=== PATIENT | male | born 1970 | race Caucasian/White ===

== ENCOUNTER → 2017-11-06 | Outpatient (CLI) | payer BC ==
--- NOTE | 2017-11-06 12:06 | CT ---
EXAMINATION TYPE: CT chest wo/w con DATE OF EXAM: 11/06/2017 COMPARISON: NONE HISTORY: Lt upper chest pain, SOB CT DLP: 1359 mGycm Automated exposure control for dose reduction was used. CONTRAST: CT scan of the chest is performed without and with IV Contrast, patient injected with 100 mL of Isovu e 300. FINDINGS: LUNGS: The lungs are grossly clear, there is no concerning parenchymal mass or nodule identified. T here is no pleural effusion or pneumothorax seen. The tracheobronchial tree is patent. MEDIASTINUM: There are no greater than 1 cm hilar or mediastinal lymph nodes. No pericardial effusi on is seen. Thoracic aorta is of normal caliber. The heart is not enlarged. UPPER ABDOMEN: No significant abnormality appreciated. OTHER: No additional significant abnormality is seen. IMPRESSION: No significant abnormality to account for the patient's symptoms.
== END | disposition home or self-care (01) ==
LOC: RADCTMAIN 11:07
PROVIDERS: ATTEND Family Medicine
DX: R07.89 Other chest pain (principal)
CPT/HCPCS: 71270; Q9967

== ENCOUNTER → 2018-02-09 | Outpatient (CLI) | payer BC ==
--- NOTE | 2018-02-09 12:51 | ECHOF ---
Referral Reason:R07.9 chest pain MEASUREMENTS -------- HEIGHT: 180.3 cm WEIGHT: 127.0 kg BP: 137/71 RVIDd: 3.2 cm (< 3.3) IVSd: 1.2 cm (0.6 - 1.1) LVIDd: 4.0 cm (3.9 - 5.3) LVPWd: 1.2 cm (0.6 - 1.1) IVSs: 1.7 cm LVIDs: 2.7 cm LVPWs: 1.6 cm LA Diam: 3.4 cm (2.7 - 3.8) LAESV Index (A-L): 23.28 ml/m Ao Diam: 3.5 cm (2.0 - 3.7) AV Cusp: 2.2 cm (1.5 - 2.6) MV EXCURSION: 22.213 mm (> 18.000) MV EF SLOPE: 75 mm/s (70 - 150) EPSS: 0.2 cm MV E Gonzalo: 1.07 m/s MV DecT: 153 ms MV A Gonzalo: 0.77 m/s MV E/A Ratio: 1.39 FINDINGS -------- Sinus rhythm. This was a technically good study. The left ventricular size is normal. There is borderline concentric left ventricular hypertrophy. Overall left ventricular systolic function is normal with, an EF between 55 - 60 %. The right ventricle is normal in size. Normal LA size by volume 22+/-6 ml/m2. The right atrium is normal in size. The aortic valve is trileaflet, and appears structurally normal. No aortic stenosis or regurgitation. The mitral valve is normal. There is trace mitral regurgitation. The tricuspid valve appears structurally normal. The pulmonic valve was not well visualized. There is no pulmonic regurgitation present. The aortic root size is normal. IVC Not well visulized. There is no pericardial effusion. CONCLUSIONS -------- 1. Sinus rhythm. 2. This was a technically good study. 3. The left ventricular size is normal. 4. There is borderline concentric left ventricular hypertrophy. 5. Overall left ventricular systolic function is normal with, an EF between 55 - 60 %. 6. Normal LA size by volume 22+/-6 ml/m2. 7. The aortic valve is trileaflet, and appears structurally normal. No aortic stenosis or regurgitati on. 8. The mitral valve is normal. 9. There is trace mitral regurgitation. 10. The tricuspid valve appears structurally normal. 11. The pulmonic valve was not well visualized. 12. There is no pulmonic regurgitation present. 13. The aortic root size is normal. 14. IVC Not well visulized. 15. There is no pericardial effusion. [employer]: Mary Miller RDCS
--- NOTE | 2018-02-09 13:54 | ECHOS ---
STRESS ECHOCARDIOGRAM INDICATIONS: Chest pain. MEDICATIONS: None. BASELINE HEART RATE: 75 BASELINE BLOOD PRESSURE: 137/71 MAXIMUM HEART RATE: 158 MAXIMUM BLOOD PRESSURE: 195/77 85% MPHR: 145 100% MPHR: 171 METS: 11.1 MAXIMUM STAGE REACHED: 4 TOTAL EXERCISE TIME: 10:00 CLINICAL INFORMATION: Baseline rhythm is sinus mechanism, rate 75, borderline right axis deviation. Baseline blood pressure 137/71 mmHg. Patient exercised on Lester protocol for 10 minute reaching peak rate 158 beats per minute which is equal to 92% maximum predicted heart rate. Peak blood pressure 195/77 mmHg. Test was terminated due to fatigue. There was no chest pain. Electrocardiographic monitoring revealed no evidence of diagnostic ischemic ST deviation. FINDINGS: Baseline echocardiogram revealed normal wall thickening motion. At peak exercise, there was normal wall motion augmentation with no hypokinesis or dyskinesis. CONCLUSION: 1. Average exercise tolerance with normal echocardiographic response to exercise. 2. Normal stress echocardiogram with no evidence of stress-induced ischemia. MMODL / IJN: [id number] /
== END | disposition home or self-care (01) ==
LOC: RADNMMAIN 09:46
PROVIDERS: ATTEND Family Medicine
DX: R07.89 Other chest pain (principal); R00.2 Palpitations; I10 Essential (primary) hypertension
CPT/HCPCS: 93225; 93226; 93306; 93351

== ENCOUNTER 2018-03-27 22:46 | Emergency (ER) | payer BC ==
[2018-03-27 23:20] LABS: Basophils # (A) 0.1 k/uL (0-0.2); Basophils % (A) 1 %; Eosinophils # (A) 0.3 k/uL (0-0.7); Eosinophils % (A) 4 %; HCT 48.3 % (39.0-53.0); HGB 16.2 gm/dL (13.0-17.5); Lymphocytes # (A) 2.3 k/uL (1.0-4.8); Lymphocytes % (A) 25 %; MCH 28.7 pg (25.0-35.0); MCHC 33.5 g/dL (31.0-37.0); MCV 85.7 fL (80.0-100.0); Mean Platelet Volume 6.3; Monocytes # (A) 0.6 k/uL (0-1.0); Monocytes % (A) 7 %; Neutrophils # (A) 5.6 k/uL (1.3-7.7); Neutrophils % (A) 62 %; Platelet Count 286 k/uL (150-450); RBC 5.64 m/uL (4.30-5.90); RDW 12.7 % (11.5-15.5); WBC 9.1 k/uL (3.8-10.6)
[2018-03-27 23:28] LABS: ALT 56 U/L (21-72); AST 31 U/L (17-59); Albumin 4.2 g/dL (3.5-5.0); Alkaline Phosphatase 87 U/L (38-126); Anion Gap 8 mmol/L; Blood Urea Nitrogen 22 mg/dL (9-20); Calcium 9.5 mg/dL (8.4-10.2); Carbon Dioxide 27 mmol/L (22-30); Chloride 106 mmol/L (98-107); Glucose 101 mg/dL (74-99); Magnesium 2.2 mg/dL (1.6-2.3); Potassium 4.3 mmol/L (3.5-5.1); Sodium 141 mmol/L (137-145); Total Bilirubin 0.4 mg/dL (0.2-1.3); Total Protein 7.1 g/dL (6.3-8.2)
[2018-03-27 23:32] LABS: Partial Thromboplastin Time 25.1 sec (22.0-30.0); Prothrombin Time 9.8 sec (9.0-12.0)
--- NOTE | 2018-03-27 23:34 | XR ---
EXAMINATION TYPE: XR chest 2V DATE OF EXAM: 03/27/2018 COMPARISON: 03/08/2016 HISTORY: Chest pain TECHNIQUE: Frontal and lateral views of the chest are obtained. FINDINGS: Heart and mediastinum are normal. Lungs are clear. Diaphragm is normal. Bony thorax is int act. Pulmonary vascularity is normal. IMPRESSION: Normal chest. No change.
--- NOTE | 2018-03-27 23:40 | ED ---
Chest Pain HPI - General Chief Complaint: Chest Pain Stated Complaint: chest pain,hypertension Time Seen by Provider: 03/27/18 23:23 Source: patient, family, RN notes reviewed, old records reviewed Mode of arrival: ambulatory Limitations: no limitations - History of Present Illness Initial Comments: This is a 48-year-old male the ER for evaluation today. She presents for evaluation regards to not feeling well. Not feeling well. Patient is had similar issues before and is any issues with his blood pressure being elevated as well as significantly elevated today. Patient's symptoms occur or drink aggressively due to exertion. Patient states he is able to do any activity without having symptoms previously done arrested night, sleep, riding his car eating seems to have symptoms. He doesn't always take his blood pressure but notes his blood pressure is high a little discolored been this time. Patient denies any significant pain no chest pain no sweating or shortness of breath -: week(s) Onset: during rest Pain Location: substernal Pain Radiation: none Severity: mild Quality: other (Just does not feel right) Consistency: now resolved Improves With: nothing Worsens With: nothing Treatments Prior to Arrival: none - Related Data Home Medications Medication Instructions Recorded Confirmed Fluticasone Nasal [place] [Flonase 1 - 2 spray EA NOSTRIL DAILY PRN 03/27/1803/27 Nasal [place]] Loratadine 10 mg PO DAILY PRN 03/27/18 03/27/18 Allergies Allergy/AdvReac Type Severity Reaction Status Date / Time No Known Allergies Allergy Verified 03/27/18 23:08 Review of Systems ROS Statement: Those systems with pertinent positive or pertinent negative responses have been documented in the HPI. ROS Other: All systems not noted in ROS Statement are negative. EKG Findings - EKG Comments: EKG Findings:: EKG shows sinus rhythm rate of 68, MD 134, QRS 84, QTc 420 Past Medical History Past Medical History: No Reported History History of Any Multi-Drug Resistant Organisms: None Reported Past Surgical History: Orthopedic Surgery Past Psychological History: No Psychological Hx Reported Smoking Status: Never smoker Past Alcohol Use History: None Reported Past Drug Use History: None Reported General Exam Limitations: no limitations General appearance: alert, in no apparent distress, anxious Head exam: Present: atraumatic, normocephalic, normal inspection Eye exam: Present: normal appearance, PERRL, EOMI. Absent: scleral icterus, conjunctival injection, periorbital swelling ENT exam: Present: normal exam, mucous membranes moist Neck exam: Present: normal inspection. Absent: tenderness, meningismus, lymphadenopathy Respiratory exam: Present: normal lung sounds bilaterally. Absent: respiratory distress, wheezes, rales, rhonchi, stridor Cardiovascular Exam: Present: regular rate, normal rhythm, normal heart sounds. Absent: systolic murmur, diastolic murmur, rubs, gallop, clicks GI/Abdominal exam: Present: soft, normal bowel sounds. Absent: distended, tenderness, guarding, rebound, rigid Extremities exam: Present: normal inspection, full ROM, normal capillary refill. Absent: tenderness, pedal edema, joint swelling, calf tenderness Back exam: Present: normal inspection Neurological exam: Present: alert, oriented X3, CN II-XII intact Psychiatric exam: Present: normal affect, normal mood Skin exam: Present: warm, dry, intact, normal color. Absent: rash Course Vital Signs 03/27/18 03/27/18 03/27/18 22:48 23:12 23:33 Temperature 98.1 F Pulse Rate 79 73 72 Respiratory 16 20 18 Rate Blood Pressure 227/126 197/110 193/103 O2 Sat by Pulse 96 98 98 Oximetry - Reevaluation(s) Reevaluation #1: 03/27/18 23:49 Medical records thoroughly reviewed including multiple outpatient studies regarding similar and same symptoms Reevaluation #2: 03/27/18 23:49 Blood pressure much improved, patient advised regarding blood pressure control, we'll start on low-dose blood pressure medications Chest Pain MDM - MDM 48 male the ER with nonspecific symptoms of not feeling well. Patient has significant elevated blood pressure home continue to the emergency room, blood pressure is treated, patient is relatively making can be discharged Disposition Clinical Impression: Hypertension Disposition: HOME SELF-CARE Condition: Good Instructions: Hypertension (ED) Is patient prescribed a controlled substance at d/c from ED?: No Referrals: Lyle Rutledge MD [Primary Care Provider] - 1-2 days
[2018-03-27 23:41] LABS: Creatine Kinase 78 U/L (55-170)
[2018-03-27 23:53] LABS: Creatine Kinase MB 1.5 ng/mL (0.0-2.4); Troponin I <0.012 ng/mL (0.000-0.034)
[2018-03-28] MEDS ORDERED: LABETALOL 5 MG/ML VIAL MDV IVP STA (00:27)
[2018-03-28 01:25] VITALS: BP 160/100; PULSE 68; RESP 16; TEMP 98.5
== END 2018-03-28 01:25 | disposition home or self-care (01) ==
LOC: EC 22:46
DX: I10 Essential (primary) hypertension (principal)
CPT/HCPCS: 36415; 71046; 80053; 82550; 82553; 83735; 84484; 85025; 85610; 85730; 93005; 96374; 99285

== ENCOUNTER → 2018-04-09 | Outpatient (CLI) | payer BC ==
--- NOTE | 2018-04-09 10:44 | US ---
EXAMINATION TYPE: US renal artery duplex complet DATE OF EXAM: 04/09/2018 COMPARISON: NONE CLINICAL HISTORY: I10 essential hypertension. MEASUREMENTS: RENAL SIZE: Rt Kidney: 11.5 x 6.5 x 5.5cm Lt Kidney: 12.1 x 6.5 x 6.2cm RESISTANCE INDEX Right: 0.61 Left: 0.62 RA/AO RATIO (< 3.5 ) Right: 2.0 Left: 2.0 RA VELOCITY ( < 180 cm/s) Right: 123cm/s Left: 125cm/s Patient of large body habitus with extensive overlying bowel gas. Technically difficult study with so me limitations. Proximal aorta obscured by bowel gas, mid arcuate artery obscured by cyst. 2 left kidney cysts, 1.) 7.5 x 5.6 x 5.9cm 2.) 2.5 x 2.4 x 2.0cm No evidence of renal artery stenosis in this somewhat limited study. IMPRESSION: 1. No evidence for renal artery stenosis on this somewhat limited examination. 2. Renal cysts.
== END | disposition home or self-care (01) ==
LOC: RADUSMAIN 07:43
PROVIDERS: ATTEND Family Medicine
DX: N28.1 Cyst of kidney, acquired (principal); I10 Essential (primary) hypertension
CPT/HCPCS: 93975

== ENCOUNTER → 2019-02-04 | Outpatient (CLI) | payer BC ==
--- NOTE | 2019-02-04 16:18 | XR ---
EXAMINATION TYPE: XR chest 2V DATE OF EXAM: 02/04/2019 COMPARISON: Chest x-ray March 27, 2018. CT chest November 06, 2017. HISTORY: Left-sided chest pain for one year. TECHNIQUE: Frontal and lateral views of the chest are obtained. FINDINGS: There is no focal air space opacity, pleural effusion, or pneumothorax seen. The cardiac silhouette size is within normal limits. The osseous structures are intact. IMPRESSION: No acute process identified. No significant change from priors.
--- NOTE | 2019-02-04 16:36 | US ---
EXAMINATION TYPE: US kidneys/renal and bladder DATE OF EXAM: 02/04/2019 COMPARISON: NONE CLINICAL HISTORY: N28.1 CYST OF KIDNEY. Hx of renal cysts EXAM MEASUREMENTS: Right Kidney: 10.7 x 6.4 x 4.5 cm Left Kidney: 11.5 x 5.0 x 4.2 cm Right Kidney: No hydronephrosis or masses seen Left Kidney: Cystic area seen laterally 6.2 x 6.1 x 6.4 cm. Bladder: wnl Bilateral Jets seen: Yes IMPRESSION: There is a 6 cm simple cyst on the left kidney.
== END | disposition home or self-care (01) ==
LOC: RADUSWWP 15:33
PROVIDERS: ATTEND Family Medicine
DX: N28.1 Cyst of kidney, acquired (principal); R68.89 Other general symptoms and signs
CPT/HCPCS: 71046; 76770

== ENCOUNTER 2019-03-24 06:41 | Day surgery (SDC) | payer BC ==
[2019-03-19 14:54] VITALS: BMI 39.0
[~2019-03-24 06:41] MED LIST: LACTATED RINGERS 1,000 ML IV SCH; LIDOCAINE 1% 20 ML VIAL (10MG/ML) FOR IV START INTRADERMA PRN
[2019-03-24 07:12] VITALS: RESP 16; TEMP 97.8
--- NOTE | 2019-03-24 07:32 | P.GSHP ---
History of Present Illness H&P Date: 03/24/19 CHIEF COMPLAINT: Colon screen HISTORY OF PRESENT ILLNESS: The patient is a 49-year-old male who presents for colon screen. Lower endoscopy was offered for further evaluation and management. PAST MEDICAL HISTORY: Please see list. PAST SURGICAL HISTORY: Please see list. MEDICATIONS: Please see list. ALLERGIES: Please see list. SOCIAL HISTORY: No illicit drug use FAMILY HISTORY: No reports of Crohn disease or ulcerative colitis. REVIEW OF ORGAN SYSTEMS: CONSTITUTIONAL: No reports of fevers or chills. PHYSICAL EXAM: VITAL SIGNS: Stable GENERAL: Well-developed pleasant in no acute distress. HEENT: No scleral icterus. Extraocular movements grossly intact. Moist buccal mucosa. NECK: Supple without lymphadenopathy. CHEST: Unlabored respirations. Equal bilateral excursions. CARDIOVASCULAR: Regular rate and rhythm. Distal 2+ pulses. ABDOMEN: Soft, nontender, nondistended. MUSCULOSKELETAL: No clubbing, cyanosis, or edema. ASSESSMENT: 1. Colon screen. PLAN: 1. Recommend proceeding with a lower endoscopy Past Medical History Past Medical History: Hypertension Additional Past Medical History / Comment(s): Hx blood clot arm(unsure which arm)yrs ago History of Any Multi-Drug Resistant Organisms: None Reported Past Surgical History: Orthopedic Surgery Additional Past Surgical History / Comment(s): amirah placement femur and tibia left leg Past Anesthesia/Blood Transfusion Reactions: No Reported Reaction Smoking Status: Never smoker - Past Family History Mother Family Medical History: No Reported History Medications and Allergies Home Medications Medication Instructions Recorded Confirmed Type Fluticasone Nasal [place] [Flonase 1 - 2 spray EA NOSTRIL DAILY PRN 03/27/18 03/24/19 History Nasal [place]] Lisinopril 20 mg PO QAM 03/19/19 03/24/19 History Allergies Allergy/AdvReac Type Severity Reaction Status Date / Time No Known Allergies Allergy Verified 03/24/19 07:13 Surgical - Exam Vital Signs Temp Pulse Resp BP Pulse Ox 97.8 F 65 16 169/97 98 03/24/19 07:11 03/24/19 07:11 03/24/19 07:11 03/24/19 07:11 03/24/19 07:11
[2019-03-24] MEDS ORDERED: PROPOFOL 10 MG/ML 20 ML VIAL IV ONE (07:33)
--- NOTE | 2019-03-24 07:48 | P.PCN ---
Date of Procedure: 03/24/19 Description of Procedure: PREOPERATIVE DIAGNOSIS: Colonoscopy screening. POSTOPERATIVE DIAGNOSIS: Colonoscopy screening. Diverticulosis, scattered. OPERATION: Colonoscopy to the ileocecal valve and appendiceal orifice. SURGEON: Rianna Lujan MD. ANESTHESIA: MAC. INDICATIONS: The patient is a 49-year-old male who presents for colonoscopy screening. Benefits and risks were described and informed consent was obtained. DESCRIPTION OF PROCEDURE: The patient had undergone Suprep. He had been brought into the operating room and laid in the left lateral decubitus position. After adequate intravenous sedation, the rectum was examined with 2% lidocaine jelly. No external hemorrhoids were encountered. The prostatic fossa was unremarkable. The rectal tone was within normal limits. No lesions were palpated in the rectal vault. An Olympus colonoscope was advanced until the ileocecal valve and appendiceal orifice were clearly viewed. The prep was excellent with clear visualization of the mucosal folds. The scope was removed with visualization of each mucosal fold. Scattered diverticulosis was encountered. No colonic polyps were found. No evidence of focal colitis was found. Retroflexion of the scope demonstrated grade 1 internal hemorrhoids without active bleeding or inflammation. The colon was desufflated. The patient had tolerated the procedure well. Withdrawal time was over 6 minutes. FINDINGS: Aronchick preparation quality scale (1-5) Internal hemorrhoids, grade 1 No external prolapsed hemorrhoids. No arteriovenous malformations. No adenomatous polyps. No focal colitis. Pandiverticulosis RECOMMENDATIONS: Lower endoscopy every 10 years per screening guidelines, 2028 or Cologuard Plan - Discharge Summary Discharge Rx Participant: Yes New Discharge Prescriptions: No Action Fluticasone Nasal [place] [Flonase Nasal [place]] 1 - 2 spray EA NOSTRIL DAILY PRN PRN Reason: Allergy Symptoms RX: Lisinopril 20 mg PO QAM Discharge Medication List Fluticasone Nasal [place] [Flonase Nasal [place]] 1 - 2 spray EA NOSTRIL DAILY PRN 03/27/18 [History] RX: Lisinopril 20 mg PO QAM 03/19/19 [History] Follow up Appointment(s)/Referral(s): Rianna Lujan MD [STAFF PHYSICIAN] - As Needed Patient Instructions/Handouts: Diverticulosis Diet (GEN), Diverticulosis (GEN) Activity/Diet/Wound Care/Special Instructions: Repeat colonoscopy 10 years, 2028 or Cologuard Discharge Disposition: HOME SELF-CARE
[2019-03-24 08:08] VITALS: BP 135/90; PULSE 56
== END 2019-03-24 08:28 | disposition home or self-care (01) ==
LOC: ORWHC2ENDO 06:41
PROVIDERS: ATTEND Surgery Plastic and Reconstructive Surgery
DX: Z12.11 Encounter for screening for malignant neoplasm of colon (principal); K57.30 Diverticulosis of large intestine without perforation or abscess without bleeding; K64.0 First degree hemorrhoids; I10 Essential (primary) hypertension; Z79.899 Other long term (current) drug therapy; Z98.890 Other specified postprocedural states
CPT/HCPCS: G0121; J2704; 45378

== ENCOUNTER → 2019-08-31 | Outpatient (CLI) | payer BC ==
--- NOTE | 2019-08-31 09:22 | XR ---
EXAMINATION TYPE: XR mandible complete DATE OF EXAM: 08/31/2019 COMPARISON: NONE HISTORY: Bilateral temporomandibular joint pain greater on the right than left. TECHNIQUE: 5 views of the mandible were obtained FINDINGS: Mastoid air cells appear well aerated. No acute mandibular fracture is seen. Multiple denta l fillings are present. There is joint space narrowing of the left temporomandibular joint on the ope n mouth view with some sclerosis of the opposing surfaces. Paranasal sinuses appear well aerated. 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 Temporomandibular joint MRI could b e considered to evaluate the articular discs.
== END | disposition home or self-care (01) ==
LOC: RADXRMAIN 08:51
PROVIDERS: ATTEND Family Medicine
DX: M12.88 Other specific arthropathies, not elsewhere classified, other specified site (principal)
CPT/HCPCS: 70110

== ENCOUNTER → 2020-03-07 | Outpatient (CLI) | payer BC ==
--- NOTE | 2020-03-07 14:02 | US ---
EXAMINATION TYPE: US kidneys/renal and bladder DATE OF EXAM: 03/07/2020 COMPARISON: NONE CLINICAL HISTORY: N28.1 Renal cyst. EXAM MEASUREMENTS: Right Kidney: 11.4 x 5.6 x 5.5 cm Left Kidney: 11.7 x 6.1 x 5.2 cm Right Kidney: wnl Left Kidney: 2 simple appearing cysts measuring 1.) 2.8 x 2.6 x 3.0cm, 2.)7.9 x 5.4 x 5.9cm Bladder: wnl Bilateral Jets seen: yes IMPRESSION: 1. Left renal cysts
== END | disposition home or self-care (01) ==
LOC: RADUSWWP 12:47
PROVIDERS: ATTEND Family Medicine
DX: N28.1 Cyst of kidney, acquired (principal)
CPT/HCPCS: 76770

== ENCOUNTER → 2020-10-04 | Outpatient (CLI) | payer BC | END | disposition home or self-care (01) | LOC: LABWHC1 16:54 | PROVIDERS: ATTEND Family Medicine | DX: U07.1 COVID-19 (principal) | CPT/HCPCS: U0003; C9803; U0005 ==

== ENCOUNTER 2020-10-05 15:30 | Emergency (ER) | payer BC ==
[2020-10-05] MEDS ORDERED: IBUPROFEN 600 MG TAB PO STA (15:55)
[2020-10-05] MEDS ORDERED: ALBUTEROL HFA INHALER INHALATION STA (15:56)
[2020-10-05] MEDS ORDERED: BENZONATATE 100 MG CAP PO STA (15:56)
[2020-10-05] MEDS ORDERED: ACETAMINOPHEN TAB 500 MG TAB PO STA (15:56)
--- NOTE | 2020-10-05 16:05 | ED ---
General Adult HPI - General Chief complaint: Upper Respiratory Infection Stated complaint: Sent by PCP for BAM Time Seen by Provider: 10/05/20 15:30 Source: patient, RN notes reviewed, old records reviewed Mode of arrival: ambulatory Limitations: no limitations - History of Present Illness Initial comments: This is a 50-year-old male who presents emergency Department having symptoms of cold starting 8 days ago. Patient states he was tested today it came back positive. Patient states he's coughing so much she has chest pain anytime he coughs or takes a deep breath. Patient denies any chest pain at rest. Patient denies palpitations. Patient states he feels a little short of breath but not that bad. Patient states he had diarrhea and a little change in his taste. Patient has no swelling to the legs or calf tenderness. - Related Data Home Medications Medication Instructions Recorded Confirmed Fluticasone Nasal [place] [Flonase 1 - 2 spray EA NOSTRIL HS 03/27/18 10/05/20 Nasal [place]] lisinopriL 20 mg PO HS 03/19/19 10/05/20 Previous Rx's Medication Instructions Recorded Albuterol Inhaler [Ventolin Hfa 2 puff INHALATION RT-QID #2 puff 10/05/20 Inhaler] Benzonatate [Tessalon Perles] 200 mg PO TID #15 capsule 10/05/20 Allergies Allergy/AdvReac Type Severity Reaction Status Date / Time No Known Allergies Allergy Verified 10/05/20 16:43 Review of Systems ROS Statement: Those systems with pertinent positive or pertinent negative responses have been documented in the HPI. ROS Other: All systems not noted in ROS Statement are negative. Past Medical History Past Medical History: Hypertension Additional Past Medical History / Comment(s): Hx blood clot arm(unsure which arm)yrs ago History of Any Multi-Drug Resistant Organisms: None Reported Past Surgical History: Orthopedic Surgery Additional Past Surgical History / Comment(s): amirah placement femur and tibia left leg Past Anesthesia/Blood Transfusion Reactions: No Reported Reaction Past Psychological History: No Psychological Hx Reported Past Alcohol Use History: None Reported Past Drug Use History: None Reported - Past Family History Mother Family Medical History: No Reported History General Exam - General Exam Comments Initial Comments: GENERAL: Patient is well-developed and well-nourished. Patient is nontoxic and well- hydrated and is in mild distress. ENT: Neck is soft and supple. No significant lymphadenopathy is noted. Oropharynx is clear. Moist mucous membranes. Neck has full range of motion without eliciting any pain. EYES: The sclera were anicteric and conjunctiva were pink and moist. Extraocular move ments were intact and pupils were equal round and reactive to light. Eyelids were unremarkable. PULMONARY: Unlabored respirations. Good breath sounds bilaterally. No audible rales rhonchi or wheezing was noted. CARDIOVASCULAR: There is a regular rate and rhythm without any murmurs gallops or rubs. ABDOMEN: Soft and nontender with normal bowel sounds. SKIN: Skin is clear with no lesions or rashes and otherwise unremarkable. NEUROLOGIC: Patient is alert and oriented x3. Cranial nerves II through XII are grossly intact. Motor and sensory are also intact. Normal speech, volume and content. Symmetrical smile. MUSCULOSKELETAL: Normal extremities with adequate strength and full range of motion. No lower extremity swelling or edema. No calf tenderness. LYMPHATICS: No significant lymphadenopathy is noted PSYCHIATRIC: Normal psychiatric evaluation. Limitations: no limitations Course Vital Signs 10/05/20 10/05/20 10/05/20 15:31 15:35 17:02 Temperature 98.8 F Pulse Rate 82 96 Respiratory 18 20 20 Rate Blood Pressure 156/105 127/87 O2 Sat by Pulse 98 96 Oximetry 10/05/20 17:09 Temperature 101.1 F H Pulse Rate Respiratory Rate Blood Pressure O2 Sat by Pulse Oximetry Medical Decision Making - Medical Decision Making EKG shows normal sinus rhythm at 83 bpm NE interval 248 QRS is 78 QT interval 372 QTC is 437. Patient's EKG shows no ST segment elevation or depression. Chest x-ray shows possibly some pneumonia. However some very poor x-ray. Patient received monoclonal antibodies. Patient had no adverse reaction. Patient did receive up-year-old emergency department as well as Tessalon Perles and did help with his cough a little. Disposition Clinical Impression: COVID-19 Disposition: HOME SELF-CARE Condition: Good Instructions (If sedation given, give patient instructions): Coronavirus Disease 2019 (COVID-19) Prescriptions: Benzonatate [Tessalon Perles] 200 mg PO TID #15 capsule Albuterol Inhaler [Ventolin Hfa Inhaler] 2 puff INHALATION RT-QID #2 puff Is patient prescribed a controlled substance at d/c from ED?: No Referrals: Lyle Rutledge MD [Primary Care Provider] - 1-2 days Time of Disposition: 18:21
[2020-10-05] MEDS ORDERED: BAMLANIVIMAB (EUA) 700 MG, ETESEVIMAB (EUA) 1,400 MG in SODIUM CHLORIDE 0.9% 50 ML IVPB ONE (16:30)
[2020-10-05] MEDS ORDERED: SODIUM CHLORIDE 0.9% 50 ML IVPB ONE (16:30)
--- NOTE | 2020-10-05 16:54 | XR ---
EXAMINATION TYPE: XR chest 1V portable DATE OF EXAM: 10/05/2020 CLINICAL HISTORY: Short of breath. Positive Covid 19. TECHNIQUE: Portable frontal view of the chest. COMPARISON: None FINDINGS: Low lung volumes. The cardiomediastinal silhouette is within normal limits for size. Pulmo nary vasculature is normal. Very minimal peripheral patchy airspace opacities. No pleural effusion. No pneumothorax seen. No acute displaced osseous fracture. IMPRESSION: Very minimal peripheral patchy airspace opacities may be accentuated due to low lung volumes versus r epresent atypical pneumonitis including Covid 19.
[2020-10-05 18:41] VITALS: BP 130/87; PULSE 77; RESP 18; TEMP 100
== END 2020-10-05 18:30 | disposition home or self-care (01) ==
LOC: EC 15:30
DX: U07.1 COVID-19 (principal); I10 Essential (primary) hypertension
CPT/HCPCS: 94640; 71045; 99285; 96360; Q0245

== ENCOUNTER 2020-10-06 14:30 | Emergency (ER) | payer BC ==
[2020-10-06 14:35] VITALS: TEMP 97.4
[2020-10-06] MEDS ORDERED: SODIUM CHLORIDE 0.9% 1,000 ML IV STA (14:53)
--- NOTE | 2020-10-06 14:59 | ED ---
General Adult HPI - General Chief complaint: Dizziness Stated complaint: LIGHT HEADENESS Time Seen by Provider: 10/06/20 14:37 Source: patient Mode of arrival: wheelchair Limitations: no limitations - History of Present Illness Initial comments: Patient is a 50-year-old male with history of hypertension, presenting to the emergency department with increase in his Covid his symptoms. Patient states he tested positive for Covid a few days ago, he was here in the ER yesterday and received the BAM infusion. Patient states he felt a little lightheaded last night and tried to go to sleep. Patient states he was feeling shaky, feverish all night and did not get a lot of sleep. He states throughout today he has felt lightheaded, fatigue, increasing shortness of breath. He states he also feels like his heart is racing. He also admits to some chest pain that happened this morning when he was coughing. He denies any chest pain at this time. He states he has been having diarrhea as well, no nausea or vomiting, no abdominal pain. He denies history of asthma or COPD, he is a nonsmoker. He denies any other further complaints at this time. Upon arrival to the ER, he is afebrile, 94% on room air. - Related Data Home Medications Medication Instructions Recorded Confirmed Fluticasone Nasal [place] [Flonase 1 - 2 spray EA NOSTRIL HS 03/27/18 10/06/20 Nasal [place]] lisinopriL 20 mg PO HS 03/19/19 10/06/20 Albuterol Inhaler [Ventolin Hfa 2 puff INHALATION RT-QID PRN 10/06/20 10/06/20 Inhaler] Previous Rx's Medication Instructions Recorded Benzonatate [Tessalon Perles] 200 mg PO TID #15 capsule 10/05/20 Dexamethasone [Decadron] 6 mg PO DAILY 7 Days #7 tablet 10/06/20 Allergies Allergy/AdvReac Type Severity Reaction Status Date / Time No Known Allergies Allergy Verified 10/06/20 15:45 Review of Systems ROS Statement: Those systems with pertinent positive or pertinent negative responses have been documented in the HPI. ROS Other: All systems not noted in ROS Statement are negative. Past Medical History Past Medical History: Deep Vein Thrombosis (DVT), Hypertension Additional Past Medical History / Comment(s): Hx blood clot arm(unsure which arm)yrs ago. Covid 10/04 History of Any Multi-Drug Resistant Organisms: None Reported Past Surgical History: Orthopedic Surgery Additional Past Surgical History / Comment(s): amirah placement femur and tibia left leg Past Anesthesia/Blood Transfusion Reactions: No Reported Reaction Past Psychological History: No Psychological Hx Reported Smoking Status: Never smoker Past Alcohol Use History: None Reported Past Drug Use History: None Reported - Past Family History Mother Family Medical History: No Reported History General Exam - General Exam Comments Initial Comments: GENERAL: Patient is well-developed and well-nourished. Patient is nontoxic and in no acute distress. HEAD: Atraumatic, normocephalic. EYES: Pupils equal round and reactive to light, extraocular movements intact, sclera anicteric, conjunctiva are normal. Eyelids were unremarkable. ENT: TMs normal, nares patent, oropharynx clear without exudates. Moist mucous membranes. NECK: Normal range of motion, supple without lymphadenopathy or JVD. LUNGS: Unlabored respirations. Breath sounds clear to auscultation bilaterally and equal. No wheezes rales or rhonchi. Dry cough noted. HEART: Regular rate and rhythm without murmurs, rubs or gallops. ABDOMEN: Soft, nontender, normoactive bowel sounds. No guarding, no rebound. No masses appreciated. : Deferred MUSCULOSKELETAL: Normal extremities with adequate strength and normal range of motion, no pitting or edema. No clubbing or cyanosis. NEUROLOGICAL: Patient is alert and oriented x 3. Motor and sensory are also intact. Cranial nerves II through XII grossly intact. Symmetrical smile. Normal speech, normal gait. PSYCH: Normal mood, normal affect. SKIN: Warm, Dry, normal turgor, no rashes or lesions noted. Limitations: no limitations Course Vital Signs 10/06/20 10/06/20 14:32 16:22 Temperature 97.4 F L Pulse Rate 74 78 Respiratory 24 18 Rate Blood Pressure 167/103 124/69 O2 Sat by Pulse 94 L 97 Oximetry EKG Findings - EKG Comments: EKG Findings:: Normal sinus rhythm, normal ECG, no signs of acute process. A ventricular rate 87, AZ interval 136, QT 374. Medical Decision Making - Medical Decision Making Patient is a 50-year-old male with history of hypertension, presenting for increase in his Covid symptoms. He did come in to the ER yesterday and received a BAM infusion. He had increase in shortness of breath over the last 24 hours as well as increase in fatigue and some lightheadedness. His initial vital signs are stable, labs show a normal white count, normal d-dimer. Sodium and potassium was just slightly low at 135, 3.3 respectively. Liver enzymes are slightly elevated as well as LDH and CRP. Troponin is normal. Chest x-ray shows patchy basilar infiltrates, developing covid Pneumonia. Relatively unchanged from yesterday's chest x-ray. Patient received some fluids, vital signs are rechecked and have remained stable. He is 97% on room air. Patient i s stable for discharge. I will give him steroids to go home with, he was given a prescription for inhaler yesterday. I also recommended vitamins D, C, and zinc. Patient is in agreement with this plan of care. Return parameters were discussed with him and he verbalized understanding. Case discussed with Dr. Godinez. - Lab Data Result diagrams: 10/06/20 15:02 10/06/20 15:02 Lab Results 10/06/20 10/06/20 10/06/20 Range/Units 15:02 15:02 15:02 WBC 5.3 (3.8-10.6) k/uL RBC 5.23 (4.30-5.90) m/uL Hgb 14.9 (13.0-17.5) gm/dL Hct 43.5 (39.0-53.0) % MCV 83.1 (80.0-100.0) fL MCH 28.5 (25.0-35.0) pg MCHC 34.2 (31.0-37.0) g/dL RDW 12.7 (11.5-15.5) % Plt Count 301 (150-450) k/uL MPV 7.1 Neutrophils % 71 % Lymphocytes % 15 % Monocytes % 9 % Eosinophils % 1 % Basophils % 1 % Neutrophils # 3.8 (1.3-7.7) k/uL Lymphocytes # 0.8 L (1.0-4.8) k/uL Monocytes # 0.5 (0-1.0) k/uL Eosinophils # 0.0 (0-0.7) k/uL Basophils # 0.0 (0-0.2) k/uL PT 10.4 (9.0-12.0) sec INR 1.0 (<1.2) APTT 22.3 (22.0-30.0) sec D-Dimer 0.50 (<0.60) mg/L FEU Sodium 135 L (137-145) mmol/L Potassium 3.3 L (3.5-5.1) mmol/L Chloride 101 (98-107) mmol/L Carbon Dioxide 24 (22-30) mmol/L Anion Gap 10 mmol/L BUN 14 (9-20) mg/dL Creatinine 0.64 L (0.66-1.25) mg/dL Est GFR (CKD-EPI)AfAm >90 (>60 ml/min/1.73 sqM) Est GFR (CKD-EPI)NonAf >90 (>60 ml/min/1.73 sqM) Glucose 102 H (74-99) mg/dL Plasma Lactic Acid Praveen (0.7-2.0) mmol/L Calcium 8.9 (8.4-10.2) mg/dL Magnesium 2.1 (1.6-2.3) mg/dL Total Bilirubin 1.0 (0.2-1.3) mg/dL AST 121 H (17-59) U/L ALT 104 H (4-49) U/L Alkaline Phosphatase 69 (38-126) U/L Lactate Dehydrogenase 1032 H (313-618) U/L Troponin I (0.000-0.034) ng/mL C-Reactive Protein 4.7 H (<1.0) mg/dL Total Protein 6.6 (6.3-8.2) g/dL Albumin 3.9 (3.5-5.0) g/dL 10/06/20 10/06/20 Range/Units 15:02 15:02 WBC (3.8-10.6) k/uL RBC (4.30-5.90) m/uL Hgb (13.0-17.5) gm/dL Hct (39.0-53.0) % MCV (80.0-100.0) fL MCH (25.0-35.0) pg MCHC (31.0-37.0) g/dL RDW (11.5-15.5) % Plt Count (150-450) k/uL MPV Neutrophils % % Lymphocytes % % Monocytes % % Eosinophils % % Basophils % % Neutrophils # (1.3-7.7) k/uL Lymphocytes # (1.0-4.8) k/uL Monocytes # (0-1.0) k/uL Eosinophils # (0-0.7) k/uL Basophils # (0-0.2) k/uL PT (9.0-12.0) sec INR (<1.2) APTT (22.0-30.0) sec D-Dimer (<0.60) mg/L FEU Sodium (137-145) mmol/L Potassium (3.5-5.1) mmol/L Chloride (98-107) mmol/L Carbon Dioxide (22-30) mmol/L Anion Gap mmol/L BUN (9-20) mg/dL Creatinine (0.66-1.25) mg/dL Est GFR (CKD-EPI)AfAm (>60 ml/min/1.73 sqM) Est GFR (CKD-EPI)NonAf (>60 ml/min/1.73 sqM) Glucose (74-99) mg/dL Plasma Lactic Acid Praveen 1.6 (0.7-2.0) mmol/L Calcium (8.4-10.2) mg/dL Magnesium (1.6-2.3) mg/dL Total Bilirubin (0.2-1.3) mg/dL AST (17-59) U/L ALT (4-49) U/L Alkaline Phosphatase (38-126) U/L Lactate Dehydrogenase (313-618) U/L Troponin I <0.012 (0.000-0.034) ng/mL C-Reactive Protein (<1.0) mg/dL Total Protein (6.3-8.2) g/dL Albumin (3.5-5.0) g/dL Disposition Clinical Impression: COVID-19 Disposition: HOME SELF-CARE Condition: Stable Instructions (If sedation given, give patient instructions): Coronavirus Disease 2019 (COVID-19) Additional Instructions: Please return to the Emergency Department if symptoms worsen or any other concerns. Recommend steroids, starting today, use inhaler as needed for shortness of breath and cough. Also recommend vitamins D, C and zinc. Recommend following up with your primary care physician. Prescriptions: Dexamethasone [Decadron] 6 mg PO DAILY 7 Days #7 tablet Is patient prescribed a controlled substance at d/c from ED?: No Referrals: Lyle Rutledge MD [Primary Care Provider] - 1-2 days Time of Disposition: 16:31
[2020-10-06 15:30] LABS: Basophils % (A) 1 %; Eosinophils % (A) 1 %; HCT 43.5 % (39.0-53.0); HGB 14.9 gm/dL (13.0-17.5); Lymphocytes # (A) 0.8 k/uL (1.0-4.8); Lymphocytes % (A) 15 %; MCH 28.5 pg (25.0-35.0); MCHC 34.2 g/dL (31.0-37.0); MCV 83.1 fL (80.0-100.0); Mean Platelet Volume 7.1; Monocytes # (A) 0.5 k/uL (0-1.0); Monocytes % (A) 9 %; Neutrophils # (A) 3.8 k/uL (1.3-7.7); Neutrophils % (A) 71 %; Platelet Count 301 k/uL (150-450); RBC 5.23 m/uL (4.30-5.90); RDW 12.7 % (11.5-15.5); WBC 5.3 k/uL (3.8-10.6)
[2020-10-06 15:36] LABS: ALT 104 U/L (4-49); AST 121 U/L (17-59); African American GFR (CKD) >90 (>60 ml/min/1.73 sqM); Albumin 3.9 g/dL (3.5-5.0); Alkaline Phosphatase 69 U/L (38-126); Anion Gap 10 mmol/L; Blood Urea Nitrogen 14 mg/dL (9-20); C Reactive Protein 4.7 mg/dL (<1.0); Calcium 8.9 mg/dL (8.4-10.2); Carbon Dioxide 24 mmol/L (22-30); Chloride 101 mmol/L (98-107); D-Dimer 0.5 mg/L FEU (<0.60); Glucose 102 mg/dL (74-99); LDH 1032 U/L (313-618); Magnesium 2.1 mg/dL (1.6-2.3); Non-African American GFR(CKD) >90 (>60 ml/min/1.73 sqM); Partial Thromboplastin Time 22.3 sec (22.0-30.0); Potassium 3.3 mmol/L (3.5-5.1); Prothrombin Time 10.4 sec (9.0-12.0); Sodium 135 mmol/L (137-145); Total Protein 6.6 g/dL (6.3-8.2)
--- NOTE | 2020-10-06 15:40 | XR ---
EXAMINATION TYPE: XR chest 1V portable DATE OF EXAM: 10/06/2020 HISTORY: Shortness of breath. COMPARISON: 10/05/2020 TECHNIQUE: Single view of the chest is submitted. FINDINGS: Demonstrated are scattered senescent parenchymal change. Patchy basilar infiltrates which are felt to reflect developing Covid 19 pneumonia. The heart is stable. Hilar and mediastinal structures are within normal limits. Degenerative changes are seen of the dorsal spine. IMPRESSION: 1. Patchy basilar infiltrates which are felt to reflect developing Covid 19 pneumonia.
[2020-10-06 16:23] VITALS: BP 124/69; PULSE 78; RESP 18
== END 2020-10-06 16:36 | disposition home or self-care (01) ==
LOC: EC 14:30
DX: U07.1 COVID-19 (principal); I10 Essential (primary) hypertension; Z86.718 Personal history of other venous thrombosis and embolism
CPT/HCPCS: 36415; 71045; 80053; 83605; 83615; 83735; 84484; 85025; 85379; 85610; 85730; 86140; 93005; 99285